=== PATIENT | female | born 1965 | race Caucasian/White ===

== ENCOUNTER 2017-01-20 06:35 | Day surgery (SDC) | payer BC ==
[~2017-01-20] VITALS: Ht 172.7 cm; Wt 113.0 kg
[~2017-01-20 06:35] MED LIST: ALBU6.7H INH; BUPIVACAINE/PF 0.5% ONE; CETI10TA24 PO; EPINEPHRINE 1 MG/ML, 1ML ONE; LIDOCAINE/PF 1.5%-EPI 1:200K, 30ML ONE; LORC10TA PO; METF500T4 PO; NAPR220C2 PO; TURMERIC PO
[2017-01-20] MEDS ORDERED: MIDAZOLAM 1 MG/ML, 2ML ONE (07:05)
[2017-01-20] MEDS ORDERED: FENTANYL PF 100 MCG/2ML ONE ×2 (07:05→08:16)
[2017-01-20 07:12] VITALS: BP 132/83
[2017-01-20] MEDS ORDERED: BUPIVACAINE/PF-EPI 0.5% 1:200K INFIL ONE (07:19)
[2017-01-20] MEDS ORDERED: PROPOFOL 10 MG/ML, 20ML ONE (07:27)
[2017-01-20] MEDS ORDERED: ONDANSETRON 2MG/ML, 2ML ONE (07:27)
[2017-01-20] MEDS ORDERED: CEFAZOLIN 1,000 MG ONE (07:27)
[2017-01-20] MEDS ORDERED: KETOROLAC 30 MG/1 ML ONE (07:27)
[2017-01-20] MEDS ORDERED: DEXAMETHASONE 4 MG/ML, 1ML ONE (07:27)
[2017-01-20 07:45] LABS: HCG UR OBC PASS
[2017-01-20] MEDS ORDERED: LACTATED RINGERS 1,000 ML IV SCH (07:55)
[2017-01-20] MEDS ORDERED: hydrALAzine 20 MG/ML, 1ML IV PRN (08:00)
[2017-01-20] MEDS ORDERED: OXYcodone 5 MG/5 ML ORAL.SOL UDC PO PRN (08:00)
[2017-01-20] MEDS ORDERED: HYDROmorphone 1 MG/ML, 1ML IV PRN (08:00)
[2017-01-20] MEDS ORDERED: MEPERIDINE/PF 25MG/0.5ML IVPush PRN (08:00)
[2017-01-20] MEDS ORDERED: LABETALOL 5MG/ML, 20ML IV PRN (08:00)
[2017-01-20] MEDS ORDERED: MIDAZOLAM 1 MG/ML, 2ML IV PRN (08:00)
[2017-01-20] MEDS ORDERED: ALBUTEROL/IPRATROPIUM 2.5MG/0.5MG, 3 ML NPPB PRN (08:00)
[2017-01-20] MEDS ORDERED: FENTANYL PF 100 MCG/2ML IV PRN (08:00)
[2017-01-20] MEDS ORDERED: ONDANSETRON 2MG/ML, 2ML IVPush PRN (08:00)
[2017-01-20] MEDS ORDERED: ACETAMINOPHEN 325 MG TABLET PO PRN (08:00)
[2017-01-20] MEDS ORDERED: PROMETHAZINE 25 MG/ML, 1ML IV PRN (08:00)
[2017-01-20] MEDS ORDERED: ACETAMINOPHEN 650 MG/20.3 ML UDC ONE (08:17)
[2017-01-20] MEDS ORDERED: OXYcodone 5 MG/5 ML ORAL.SOL UDC ONE (08:17)
== END 2017-01-20 12:30 ==
LOC: OUT 06:35 → MERGE 08:00 → OUT 12:30
PROVIDERS: ATTEND Orthopaedic Surgery
DX: S83.242A Other tear of medial meniscus, current injury, left knee, initial encounter (principal); S83.282A Other tear of lateral meniscus, current injury, left knee, initial encounter; M65.862 Other synovitis and tenosynovitis, left lower leg; J45.909 Unspecified asthma, uncomplicated; Z98.890 Other specified postprocedural states; X58.XXXA Exposure to other specified factors, initial encounter; Y93.89 Activity, other specified; Y92.89 Other specified places as the place of occurrence of the external cause; Y99.8 Other external cause status; Z88.1 Allergy status to other antibiotic agents; Z88.8 Allergy status to other drugs, medicaments and biological substances
CPT/HCPCS: 29880; 81025; J0171; J0690; J1100; J1885; J2250; J2405; J2704; J3010; J3490; J7120

== ENCOUNTER → 2017-04-06 | Outpatient (CLI) | payer BC ==
[~2017-04-06] MED LIST changes: -BUPIVACAINE/PF 0.5% ONE; -EPINEPHRINE 1 MG/ML, 1ML ONE; -LIDOCAINE/PF 1.5%-EPI 1:200K, 30ML ONE
== END | disposition home or self-care (01) ==
LOC: CFH 07:36
PROVIDERS: ATTEND Registered Nurse
DX: G43.909 Migraine, unspecified, not intractable, without status migrainosus (principal)
CPT/HCPCS: 70551

== ENCOUNTER 2019-05-02 08:30 | Outpatient (CLI) | payer BC ==
[~2019-05-02 08:30] MED LIST changes: -ALBU6.7H INH; +ALBU6.7H8 INH; +METF500T17 PO; -METF500T4 PO
== END 2019-05-02 23:59 | disposition home or self-care (01) ==
LOC: CFH 08:30
PROVIDERS: ATTEND Nurse Practitioner Family
DX: Z12.31 Encounter for screening mammogram for malignant neoplasm of breast (principal); R22.1 Localized swelling, mass and lump, neck
CPT/HCPCS: 70490; 77063; 77067

== ENCOUNTER → 2019-06-20 | Outpatient (CLI) | payer BC ==
[~2019-06-20] MED LIST changes: -CETI10TA24 PO; +CETI10TA26 PO
== END | disposition home or self-care (01) ==
LOC: CFH 10:07
PROVIDERS: ATTEND Internal Medicine Cardiovascular Disease
DX: I36.1 Nonrheumatic tricuspid (valve) insufficiency (principal)
CPT/HCPCS: 93306

== ENCOUNTER → 2020-01-09 | Outpatient (CLI) | payer BC ==
[~2020-01-09] MED LIST changes: +OMNIPAQUE 350 MG/ML, 100ML BOTTLE ONE
== END | disposition home or self-care (01) ==
LOC: CFH 11:44
PROVIDERS: ATTEND Genetic Counselor, MS
DX: N13.2 Hydronephrosis with renal and ureteral calculous obstruction (principal)
CPT/HCPCS: 74177; Q9967

== ENCOUNTER 2020-02-28 08:27 | Day surgery (SDC) | payer BC ==
[~2020-02-28] VITALS: Ht 172.7 cm; Wt 112.0 kg
[~2020-02-28 08:27] MED LIST changes: -CETI10TA26 PO; +CETI10TA76 PO; +LIDOCAINE 1%, 20ML ONE; -OMNIPAQUE 350 MG/ML, 100ML BOTTLE ONE; +ROPIvacaine/PF 0.5%, 30 ML ONE
[2020-02-28] MEDS ORDERED: CHLORHEXIDINE 15 ML UDC MM ONE (09:30)
[2020-02-28] MEDS ORDERED: LIDOCAINE-MPF 1%, 2ML INFIL ONE (09:30)
[2020-02-28] MEDS ORDERED: NALT1TAB PO (09:37)
[2020-02-28 09:39] VITALS: BP 134/85
[2020-02-28] MEDS: LACTATED RINGERS 1,000 ML IV SCH ×2 (09:51→10:16)
[2020-02-28] MEDS ORDERED: NITROFURANTOIN PO (09:52)
[2020-02-28] MEDS ORDERED: AIMOVIG SQ (09:52)
[2020-02-28] MEDS ORDERED: EPINEPHRINE TOPICAL SOLN 1 MG/ML, 30ML ONE (09:54)
[2020-02-28 09:58] LABS: HCG UR SG 1.022 (1.003-1.030)
[2020-02-28] MEDS ORDERED: LIDOCAINE PF 2%, 5ML ONE (10:14)
[2020-02-28] MEDS ORDERED: SUCCINYLCHOLINE 20 MG/ML, 10ML ONE (10:53)
[2020-02-28] MEDS ORDERED: DEXAMETHASONE 4 MG/ML, 1ML ONE (10:53)
[2020-02-28] MEDS ORDERED: GLYCOPYRROLATE 0.2MG/1ML, 5ML ONE (10:53)
[2020-02-28] MEDS ORDERED: ONDANSETRON 2MG/ML, 2ML ONE (10:53)
[2020-02-28] MEDS ORDERED: ROCURONIUM 10MG/ML,5ML ONE (10:53)
[2020-02-28] MEDS ORDERED: PROPOFOL 10 MG/ML, 20ML ONE (10:53)
[2020-02-28] MEDS ORDERED: CEFAZOLIN 1,000 MG ONE (10:53)
[2020-02-28] MEDS ORDERED: NEOSTIGMINE 1 MG/ML, 10ML ONE (10:53)
[2020-02-28] MEDS ORDERED: MIDAZOLAM 1 MG/ML, 2ML ONE (10:53)
[2020-02-28] MEDS ORDERED: FENTANYL PF 100 MCG/2ML ONE ×2 (10:53→12:12)
[2020-02-28] MEDS ORDERED: HYDROcodone/APAP 7.5-325MG/15ML UDC PO PRN (11:30)
[2020-02-28] MEDS ORDERED: KETOROLAC 30 MG/1 ML IVPush PRN (11:30)
[2020-02-28] MEDS ORDERED: MEPERIDINE/PF 25MG/0.5ML IVPush PRN (11:30)
[2020-02-28] MEDS ORDERED: OXYcodone 5 MG/5 ML ORAL.SOL UDC PO PRN (11:30)
[2020-02-28] MEDS ORDERED: ROPIvacaine/PF 0.5%, 30 ML INFIL ONE (11:30)
[2020-02-28] MEDS ORDERED: PROMETHAZINE 25 MG/ML, 1ML IVPush PRN (11:30)
[2020-02-28] MEDS ORDERED: LORazepam 2 MG/ML, 1ML IVPush PRN (11:30)
[2020-02-28] MEDS ORDERED: HYDROmorphone 1 MG/ML, 1ML INJ IVPush PRN (11:30)
[2020-02-28] MEDS: FENTANYL PF 100 MCG/2ML IV PRN ×3 (12:14→12:34)
[2020-02-28] MEDS ORDERED: HYDROcodone/APAP 7.5-325MG/15ML UDC ONE (12:28)
[2020-02-28] MEDS ORDERED: ALBUTEROL HFA 90 MCG/SPRAY ONE (12:46)
[2020-02-28] MEDS ORDERED: KETOROLAC 30 MG/1 ML ONE (12:53)
[2020-02-28] MEDS ORDERED: KETOROLAC 30 MG/1 ML IVPush ONE (13:00)
[2020-02-28] MEDS ORDERED: ALBUTEROL HFA 90 MCG/SPRAY INH ONE (13:00)
== END 2020-02-28 14:35 | disposition home or self-care (01) ==
LOC: OUT 08:27
PROVIDERS: ATTEND Orthopaedic Surgery
DX: S73.191A Other sprain of right hip, initial encounter (principal); Z20.828 Contact with and (suspected) exposure to other viral communicable diseases; M16.11 Unilateral primary osteoarthritis, right hip; M25.851 Other specified joint disorders, right hip; M94.251 Chondromalacia, right hip; M25.751 Osteophyte, right hip; M65.851 Other synovitis and tenosynovitis, right thigh; E11.9 Type 2 diabetes mellitus without complications; J45.909 Unspecified asthma, uncomplicated; Z79.84 Long term (current) use of oral hypoglycemic drugs; Z79.899 Other long term (current) drug therapy; Z88.2 Allergy status to sulfonamides; Z98.890 Other specified postprocedural states; Z82.49 Family history of ischemic heart disease and other diseases of the circulatory system; X58.XXXA Exposure to other specified factors, initial encounter; Y93.89 Activity, other specified; Y92.89 Other specified places as the place of occurrence of the external cause; Y99.8 Other external cause status
CPT/HCPCS: 29914; 29916; 36415; 73501; 81025; 87635; J0330; J0690; J1100; J1885; J2250; J2405; J2704; J2710; J2795; J3010; J7120; 76000

== ENCOUNTER → 2020-09-10 | Outpatient (CLI) | payer BC ==
[~2020-09-10] MED LIST changes: +AIMOVIG SQ; -LIDOCAINE 1%, 20ML ONE; +NALT1TAB PO; +NITROFURANTOIN PO; -ROPIvacaine/PF 0.5%, 30 ML ONE
== END | disposition home or self-care (01) ==
LOC: RAD 15:19
PROVIDERS: ATTEND Nurse Practitioner Family
DX: R11.10 Vomiting, unspecified (principal)
CPT/HCPCS: 76705